=== PATIENT | male | born 1980 | race Caucasian/White ===

== ENCOUNTER 2016-11-26 09:30 | Emergency (ER) | payer SELFPAY ==
[~2016-11-26 09:30] MED LIST: ACHD5005 PO; ALPR1T PO; AZIT-21 PO; CIPR500T78 PO; CLN150C PO; CPR500T PO; CYCL10TA9 PO; DIAZ10TA PO; DOXY100C2 PO; HYDR-1231 PO; HYDR-3720 PO; HYDR1CAP2 PO; IBUP800T26 PO; NAPR-243 PO; OXYC1CAP3 PO; PRD20T PO; SULF1TAB38 PO; TRM50T PO
--- OUTSIDE RECORDS SUMMARY | 2016-11-26 09:35 | XMS REPORT | Continuity of Care Document ---
Author Author [facility] Organization [facility] Address Unknown Phone Unavailable Allergies Active Description Code Type Severity Reaction Onset Reported/Identified Relationship to Patient Clinical Status Yes No Known Drug Allergies [id number] Drug Allergy Unknown N/ A 05/03/2012 Medications Problems Date Dx Coded Attending Type Code Diagnosis Diagnosed By 11/24/2009 Ot 922.1 11/24/2009 Ot 959.11 11/24/2009 Ot E000.8 11/24/2009 Ot E849.0 11/24/2009 Ot E881.0 12/14/2009 Ot 847.0 12/14/2009 Ot 959.09 12/14/2009 Ot E000.8 12/14/2009 Ot E016.9 12/14/2009 Ot E849.0 12/14/2009 Ot E925.9 12/16/2009 Ot 847.0 12/16/2009 Ot E000.8 12/16/2009 Ot E016.9 12/16/2009 Ot E849.0 12/16/2009 Ot E925.9 09/07/2010 Ot 850.0 09/07/2010 Ot 920 09/07/2010 Ot 959.01 09/07/2010 Ot E000.8 09/07/2010 Ot E849.6 09/07/2010 Ot E960.0 03/09/2011 Ot 723.1 04/14/2011 Ot 719.41 11/13/2011 Ot 305.1 11/13/2011 Ot 465.9 11/13/2011 Ot 786.2 05/03/2012 Ot 891.0 05/03/2012 Ot E000.8 05/03/2012 Ot E849.0 05/03/2012 Ot E919.3 05/03/2012 Ot V06.1 05/19/2012 Ot V58.32 05/03/2013 GENOVEVA SALVADOR, DANIELLE Mcclendon Ot 724.4 05/03/2013 GENOVEVA SALVADOR, DANIELLE Mcclendon Ot 724.5 10/06/2013 TAN FELICIANO MD Ot 370.24 10/06/2013 TAN FELICIANO MD Ot E926.2 02/06/2014 SKY DO, SUZY Ot 300.00 02/06/2014 SKY DO, SUZY Ot 305.1 02/06/2014 SKY DO, SUZY Ot 682.3 02/06/2014 SKY DO, SUZY Ot 682.4 02/06/2014 SKY DO, SUZY Ot V06.1 02/06/2014 SKY DO, SUZY Ot 300.00 02/06/2014 SKY DO, SUZY Ot 305.1 02/06/2014 SKY DO, SUZY Ot 682.3 02/06/2014 SKY DO, SUZY Ot 682.4 02/06/2014 SKY DO, SUZY Ot V06.1 02/06/2014 SKY DO, SUZY Ot 300.00 02/06/2014 SKY DO, SUZY Ot 305.1 02/06/2014 SKY DO, SUZY Ot 682.3 02/06/2014 SKY DO, SUZY Ot 682.4 02/06/2014 SKY DO, SUZY Ot V06.1 02/07/2014 SKY DO, SUZY Ot 300.00 02/07/2014 SKY DO, SUZY Ot 305.1 02/07/2014 SKY DO, SUZY Ot 682.3 02/07/2014 SKY DO, SUZY Ot 682.4 02/07/2014 SKY DO, SUZY Ot V06.1 02/08/2014 SKY DO, SUZY Ot 300.00 02/08/2014 SKY DO, SUZY Ot 305.1 02/08/2014 SKY DO, SUYZ Ot 682.3 02/08/2014 SKY DO, SUZY Ot 682.4 02/08/2014 SKY DO, SUZY Ot 882.1 02/08/2014 SKY DO, SUZY Ot E000.0 02/08/2014 SKY DO, SUZY Ot E849.0 02/08/2014 SKY DO, SUZY Ot E917.9 02/08/2014 SKY DO, SUZY Ot V06.1 Procedures Results Encounters ACCT No. Visit Date/Time Discharge Status Pt. Type Provider Facility Loc./Unit Complaint [id number] 06/29/2014 05:27:00 2014 07:55:00 DIS Emergency DANIELLE TOMAS MD [facility] ER [id number] 02/05/2014 14:59:00 2013 11:30:00 DIS Inpatient SKY DOSUZY [facility] SURGICAL [id number] 10/06/2013 00:03:00 2013 00:33:00 DIS Emergency TAN FELICIANO MD [facility] ER [id number] 05/03/2013 07:29:00 2013 08:24:00 DIS Emergency DANIELLE TOMAS MD [facility] ER [id number] 02/20/2014 10:01:00 Document Registration [id number] 05/19/2012 09:03:00 Document Registration [id number] 05/03/2012 04:38:00 Document Registration [id number] 11/13/2011 11:33:00 Document Registration [id number] 04/14/2011 07:18:00 Document Registration [id number] 03/09/2011 10:05:00 Document Registration [id number] 09/06/2010 23:07:00 Document Registration [id number] 12/16/2009 10:12:00 Document Registration [id number] 12/14/2009 10:00:00 Document Registration [id number] 11/23/2009 22:24:00 Document Registration
== END 2016-11-26 09:45 | disposition left against medical advice (07) ==
LOC: EDUNIT# 09:30 → ER 09:32
DX: J02.9 Acute pharyngitis, unspecified (principal); K08.89 Other specified disorders of teeth and supporting structures; R05 Cough

== ENCOUNTER 2017-09-15 14:39 | Emergency (ER) | payer SELFPAY ==
[~2017-09-15] VITALS: Ht 162.6 cm; Wt 61.2 kg
[2017-09-15 15:17] LABS: BILIRUBIN,URINE NEGATIVE (NEGATIVE); CLARITY,URINE VERY CLOUDY; COLOR,URINE YELLOW; GLUCOSE, URINE (UA) NEGATIVE (NEGATIVE); KETONES,URINE NEGATIVE (NEGATIVE); LEUKOCYTE ESTERASE ,URINE 3+ (NEGATIVE); NITRITE,URINE NEGATIVE (NEGATIVE); PH,URINE 8 (5-9); PROTEIN,URINE NEGATIVE (NEGATIVE); UROBILINOGEN,URINE NORMAL (NORMAL)
[2017-09-15 15:30] LABS: AMORPHOUS SEDIMENT,UR LARGE AMOR PHOSPHATE /LPF; BACTERIA,URINE MODERATE /HPF; RBC,URINE 0-2 /HPF; SQUAMOUS EPITHELIAL CELL,UR RARE /HPF; WBC,URINE 50-100 /HPF
[2017-09-15] MEDS ORDERED: LIDOCAINE 1% INJ 20 ML 20 ML VIAL INJ ONE (15:45)
[2017-09-15] MEDS ORDERED: cefTRIAXone 1 GM (ROCEPHIN) VIAL IM ONE (15:45)
--- NOTE | 2017-09-15 15:49 | ED GU-Male ---
General Chief Complaint: -Male Stated Complaint: GROIN PAIN Nursing Triage Note: PT AMB TO ROOM 9 W/O DIFFICULTY. A&OX4. CO PENILE PAIN AND DISCAHRGE. STATES "FEELS LIKE BEING KICKED IN THE NUTS." Source: patient Exam Limitations: no limitations History of Present Illness Date Seen by Provider: Sep 15, 2017 Time Seen by Provider: 15:10 Initial Comments Patient is a 37-year-old male who presents to the emergency room with complaints of testicular pain and left-sided testicular swelling. He reports that the swelling started yesterday about 1300. He denies any discharge, painful urination, or injury. Timing/Duration: yesterday Severity/Quality: moderate Location: scrotal Radiation: none Activities at Onset: none Sexual [place] History: multiple partners Modifying Factors: Worsens With Movement, Worsens With Palpation Associated Symptoms: denies symptoms Allergies and Home Medications Allergies Coded Allergies: No Known Drug Allergies (Unverified , 05/03/12) Home Medications Alprazolam 1 Mg Tablet, 1 MG PO TID PRN for ANXIETY, (Reported) Ciprofloxacin HCl 500 Mg Tablet, 500 MG PO BID Prescribed by: DANIELLE MODI on 06/29/14728 Clindamycin Hcl 150 Mg Cap, 300 MG PO TID Prescribed by: RACHEL FONG on 02/08/141108 Doxycycline Hyclate 100 Mg Capsule, 1 EACH PO BID Prescribed by: DANIELLE MODI on 06/29/14728 Hydrocodone Bit/Acetaminophen 1 Tab Tablet, 1-2 TAB PO Q6H PRN for PAIN Prescribed by: DANIELLE MODI on 06/29/14728 Patient Home Medication List Home Medication List Reviewed: Yes Review of Systems Constitutional: see HPI; No chills, No fever EENTM: no symptoms reported Respiratory: see HPI; No cough, No short of breath, No wheezing Cardiovascular: see HPI; No chest pain, No edema, No syncope Gastrointestinal: see HPI; No abdominal pain, No nausea, No vomiting Genitourinary: see HPI, other (testicular pain, left testicular swelling) Musculoskeletal: see HPI; No back pain, No gout Skin: see HPI; No change in color, No change in hair/nails, No dryness Psychiatric/Neurological: See HPI; Denies Anxiety, Denies Depressed Endocrine: See HPI; Denies Excessive Sweating, Denies Flushing Hematologic/Lymphatic: See HPI; Denies Anemia, Denies Blood Clots Past Hnyqcgu-Piciap-Jerxnn Hx Past Med/Social Hx: Reviewed Nursing Past Med/Soc Hx Patient Social History Alcohol Use: Denies Use Recreational Drug Use: No Smoking Status: Current Everyday Smoker Type Used: Cigarettes 2nd Hand Smoke Exposure: Yes Recent Foreign Travel: No Contact w/Someone Who Travel: No Recent Infectious Disease Expo: No Physical Abuse: No Sexual Abuse: No Immunizations Up To Date Tetanus Booster (TDap): Less than 5yrs Seasonal Allergies Seasonal Allergies: No Past Medical History Surgeries: Yes (SAYS MULTIPLE BUT CANNOT REMEMBER, I&D of the left hand) Respiratory: No Cardiac: No Neurological: No Reproductive Disorders: No Sexually Transmitted Disease: No HIV/AIDS: No Gastrointestinal: No Musculoskeletal: No Endocrine: No Cancer: No Psychosocial: Yes Anxiety Nursing Suicide Risk Score: 0 Integumentary: Yes (abscess and cellulitis of left hand) Recent Skin Changes Blood Disorders: No Adverse Reaction/Blood Tranf: No Family Medical History Reviewed Nursing Family Hx Patient reports no known family medical history. No Pertinent Family Hx Physical Exam Vital Signs Vital Signs - First Documented 09/15/17 14:42 Temp 97.1 Pulse 104 Resp 16 B/P (MAP) 143/95 (111) Pulse Ox 99 O2 Delivery Room Air O2 Flow Rate 0 Capillary Refill : Less Than 3 Seconds Height, Weight, BMI Height: 5'4.00" Weight: 135lbs. 0.8oz. 61.740890yf; BMI Method:Stated General Appearance: WD/WN, no apparent distress HEENT: PERRL/EOMI, normal ENT inspection, TMs normal, pharynx normal Neck: non-tender, full range of motion, supple, normal inspection Cardiovascular: regular rate, rhythm, no edema, no gallop Respiratory: chest non-tender, lungs clear, normal breath sounds Gastrointestinal: normal bowel sounds, non tender, soft, no organomegaly, no pulsatile mass Male: normal genitalia, normal prostate, no hernia; No inguinal tenderness; testicular tenderness, other (the patient's left testicle is markedly swollen compared to the right. He is very tender on exam. His prostate was normal. The patient's cremasteric reflexes was present.) Back: normal inspection, no CVA tenderness, no vertebral tenderness Extremities: normal range of motion, non-tender, normal inspection, no pedal edema, no calf tenderness Neurologic/Psychiatric: alert, normal mood/affect, oriented x 3 Skin: normal color, warm/dry Lymphatic: no adenopathy Procedures/Interventions Suture Size: 4-0 Progress/Results/Core Measures Suspected Sepsis Recent Fever Within 48 Hours: No Infection Criteria Present: None New/Unexplained Altered Menta: No Sepsis Screen: No Definite Risk SIRS Temperature:97.1 Pulse: 104 Respiratory Rate: 16 Blood Pressure 143 /95 Mean: 111 Results/Orders Lab Results Laboratory Tests Test 09/15/17 15:10 Range/Units Urine Color YELLOW Urine Clarity VERY CLOUDY H Urine pH 8 5-9 Urine Specific [place] 1.010 L 1.016-1.022 Urine Protein NEGATIVE NEGATIVE Urine Glucose (UA) NEGATIVE NEGATIVE Urine Ketones NEGATIVE NEGATIVE Urine Nitrite NEGATIVE NEGATIVE Urine Bilirubin NEGATIVE NEGATIVE Urine Urobilinogen NORMAL NORMAL MG/DL Urine Leukocyte Esterase 3+ H NEGATIVE Urine RBC (Auto) 1+ H NEGATIVE Urine RBC 0-2 /HPF Urine WBC 50-100 H /HPF Urine Squamous Epithelial Cells RARE /HPF Urine Renal Epithelial Cells NONE /HPF Urine Crystals PRESENT H /LPF Urine Amorphous Sediment LARGE KRISTEN PHOSPHATE H /LPF Urine Bacteria MODERATE H /HPF Urine Casts NONE /LPF Urine Mucus NEGATIVE /LPF Urine Culture Indicated YES My Orders Orders - ACE HOPE Scrotum (Testicle) [id number] (09/15/17 15:00) Chlamydia Trachomatis Urine (09/15/17 15:00) Neis Sekou Dna Urine Test (09/15/17 15:00) Ua Culture If Indicated (09/15/17 15:00) Urine Culture (09/15/17 15:10) Ceftriaxone Injection (Rocephin Injectio (09/15/17 15:45) Lidocaine 1% Inj 20 Ml (Xylocaine 1% Inj (09/15/17 15:45) Ibuprofen Tablet (Motrin Tablet) (09/15/17 16:00) Medications Given in ED Current Medications Medications Dose Ordered Sig/Reese Route Start Time Stop Time Status Last Admin Dose Admin Ceftriaxone Sodium 1,000 mg ONCE ONCE IM 09/15/17 15:45 09/15/17 15:46 DC 09/15/17 16:10 1,000 MG Ibuprofen 800 mg ONCE ONCE PO 09/15/17 16:00 09/15/17 16:01 DC 09/15/17 16:11 800 MG Lidocaine HCl 2.1 ml ONCE ONCE INJ 09/15/17 15:45 09/15/17 15:46 DC 09/15/17 16:10 2.1 ML Vital Signs/I&O 09/15/17 14:42 Temp 97.1 Pulse 104 Resp 16 B/P (MAP) 143/95 (111) Pulse Ox 99 O2 Delivery Room Air O2 Flow Rate 0 Capillary Refill : Less Than 3 Seconds Blood Pressure Mean: 111 Progress Note : Time: 15:48 Progress Note Patient was informed of his urinary tract infection and epididymitis that was discovered on ultrasound. He agrees with follow-up as a primary care physician and taking the doxycycline that was prescribed in the emergency room. The patient was sent home with a prescription for doxycycline 100 mg twice a day for 14 days. Departure Impression Primary Impression: Epididymitis Additional Impression: Hydrocele Qualified Codes: N43.3 - Hydrocele, unspecified Disposition: 01 HOME, SELF-CARE Condition: Stable/Unchanged Departure-Patient Inst. Decision time for Depature: 16:28 Referrals: KVNG OLVERA MD [facility] [place] Patient Instructions: Epididymitis (DC), Hydrocele, LOCAL PHYSICIAN LIST Add. Discharge Instructions: Take medication as directed. Follow-up with a doctor of your choice within 1 week for recheck. I also provided the urologist for follow-up. Call first thing Monday morning for an appointment time. Return back to the emergency room for any concerns as needed. All discharge instructions reviewed with patient and/or family. Voiced understanding. ACE HOPE Sep 15, 2017 15:49
[2017-09-15] MEDS ORDERED: IBUPROFEN TABLET 200 MG TAB PO ONE (16:00)
--- NOTE | 2017-09-15 16:17 | Diagnostic Imaging Report ---
EXAM: TESTICULAR/SCROTUM ULTRASOUND DATE: September 15, 2017. COMPARISON: June 29, 2014. INDICATION: 37-year-old male, left testicle pain and swelling. PROCEDURE: Two-dimensional grayscale , spectral Doppler and color Doppler ultrasound examination of the testes is performed. FINDINGS: Right testicle. The right testicle has normal contour and is without mass. There is normal blood flow to the right testicle. The right testicle measures 4.5 cm x 2.1 cm x 2.8 cm. Left testicle: The left testicle has normal contour and is without mass. There is normal blood flow to the left testicle. The left testicle measures 3.8 cm x 2.3 cm x 2.8 cm. The left epididymis is hypervascular and enlarged. There is a small left hydrocele. The right epididymis is normal in appearance. IMPRESSION: 1. Findings compatible with left-sided epididymitis. 2. Small left hydrocele. 3. Normal appearance of the testicles bilaterally. Dictated by: Dictated on workstation # [id number]
[2017-09-15 16:40] VITALS: BP 143/95
== END 2017-09-15 16:40 | disposition home or self-care (01) ==
LOC: EDUNIT# 14:39 → ER 14:40
DX: N45.1 Epididymitis (principal); N43.3 Hydrocele, unspecified; F41.9 Anxiety disorder, unspecified; F17.210 Nicotine dependence, cigarettes, uncomplicated
CPT/HCPCS: 36415; 76870; 81000; 87088; 87491; 87591; 96372

== ENCOUNTER 2018-07-23 21:22 | Emergency (ER) | payer SELFPAY ==
[~2018-07-23] VITALS: Ht 162.6 cm; Wt 63.5 kg
[2018-07-23] MEDS ORDERED: KETOROLAC 30 MG/ML VIAL IVP ONE (22:00)
--- NOTE | 2018-07-23 22:03 | ED Abdominal Pain ---
General Chief Complaint: Abdominal/GI Problems Stated Complaint: ABD PAIN Nursing Triage Note: abdominal pain, diarrhea Sepsis Screen: No Definite Risk Source of Information: Patient Exam Limitations: No Limitations History of Present Illness Date Seen by Provider: July 23, 2018 Time Seen by Provider: 22:01 Initial Comments 1 week of right lower quadrant abdominal pain, intermittent loose stools, no other symptoms Timing/Duration: 1 Week Severity/Quality: Cramping Location: RLQ Radiation: No Radiation Activities at Onset: None Allergies and Home Medications Allergies Coded Allergies: No Known Drug Allergies (Unverified , 05/03/12) Patient Home Medication List Home Medication List Reviewed: Yes Review of Systems Review of Systems Constitutional: see HPI; No chills EENTM: No Symptoms Reported Respiratory: No Symptoms Reported Cardiovascular: No Symptoms Reported Gastrointestinal: See HPI, Abdominal Pain; Denies Constipated; Diarrhea; Denies Nausea Genitourinary: No Symptoms Reported Musculoskeletal: no symptoms reported Skin: no symptoms reported Psychiatric/Neurological: No Symptoms Reported Past Xudlnlu-Tzfhxw-Hqknom Hx Patient Social History Alcohol Use: Denies Use Recreational Drug Use: No Smoking Status: Current Everyday Smoker Type Used: Cigarettes 2nd Hand Smoke Exposure: Yes Recent Foreign Travel: No Contact w/Someone Who Travel: No Recent Infectious Disease Expo: No Recent Hopitalizations: No Immunizations Up To Date Tetanus Booster (TDap): Less than 5yrs Seasonal Allergies Seasonal Allergies: No Past Medical History Surgeries: No Respiratory: No Cardiac: No Neurological: No Reproductive Disorders: No Sexually Transmitted Disease: No HIV/AIDS: No Genitourinary: No Gastrointestinal: No Musculoskeletal: No Endocrine: No HEENT: No Cancer: No Psychosocial: Yes Anxiety Integumentary: No Recent Skin Changes Blood Disorders: No Adverse Reaction/Blood Tranf: No Family Medical History Patient reports no known family medical history. No Pertinent Family Hx Physical Exam Vital Signs Vital Signs - First Documented 07/23/18 21:43 Temp 97.9 Pulse 98 Resp 16 B/P (MAP) 140/85 (103) Pulse Ox 100 O2 Delivery Room Air Capillary Refill : Less Than 3 Seconds Height/Weight/BMI Height: 5'4.00" Weight: 140lbs. 0oz. 63.194206fe; 21.63 BMI Method:Stated General Appearance: WD/WN, no apparent distress Respiratory: no respiratory distress, no accessory muscle use Gastrointestinal: normal bowel sounds, non tender, soft; No tenderness Extremities: normal range of motion, non-tender Neurologic/Psychiatric: alert, normal mood/affect, oriented x 3 Skin: normal color, warm/dry Procedures/Interventions Suture Size: 4-0 Progress/Results/Core Measures Results/Orders Lab Results Laboratory Tests Test 07/23/18 22:05 07/23/18 22:15 Range/Units Urine Color YELLOW Urine Clarity CLEAR Urine pH 7 5-9 Urine Specific [place] 1.010 L 1.016-1.022 Urine Protein NEGATIVE NEGATIVE Urine Glucose (UA) NEGATIVE NEGATIVE Urine Ketones NEGATIVE NEGATIVE Urine Nitrite NEGATIVE NEGATIVE Urine Bilirubin NEGATIVE NEGATIVE Urine Urobilinogen NORMAL NORMAL MG/DL Urine Leukocyte Esterase NEGATIVE NEGATIVE Urine RBC (Auto) NEGATIVE NEGATIVE Urine RBC NONE /HPF Urine WBC NONE /HPF Urine Squamous Epithelial Cells RARE /HPF Urine Crystals NONE /LPF Urine Bacteria NEGATIVE /HPF Urine Casts NONE /LPF Urine Mucus NEGATIVE /LPF Urine Culture Indicated NO Urine Opiates Screen NEGATIVE NEGATIVE Urine Oxycodone Screen NEGATIVE NEGATIVE Urine Methadone Screen NEGATIVE NEGATIVE Urine Propoxyphene Screen NEGATIVE NEGATIVE Urine Barbiturates Screen NEGATIVE NEGATIVE Ur Tricyclic Antidepressants Screen NEGATIVE NEGATIVE Urine Phencyclidine Screen NEGATIVE NEGATIVE Urine Amphetamines Screen NEGATIVE NEGATIVE Urine Methamphetamines Screen POSITIVE H NEGATIVE Urine Benzodiazepines Screen NEGATIVE NEGATIVE Urine Cocaine Screen NEGATIVE NEGATIVE Urine Cannabinoids Screen POSITIVE H NEGATIVE White Blood Count 7.0 4.3-11.0 10^3/uL Red Blood Count 5.16 4.35-5.85 10^6/uL Hemoglobin 15.8 13.3-17.7 G/DL Hematocrit 46 40-54 % Mean Corpuscular Volume 89 80-99 FL Mean Corpuscular Hemoglobin 31 25-34 PG Mean Corpuscular Hemoglobin Concent 35 32-36 G/DL Red Cell Distribution Width 13.7 10.0-14.5 % Platelet Count 275 130-400 10^3/uL Mean Platelet Volume 10.0 7.4-10.4 FL Neutrophils (%) (Auto) 59 42-75 % Lymphocytes (%) (Auto) 25 12-44 % Monocytes (%) (Auto) 9 0-12 % Eosinophils (%) (Auto) 6 0-10 % Basophils (%) (Auto) 1 0-10 % Neutrophils # (Auto) 4.1 1.8-7.8 X 10^3 Lymphocytes # (Auto) 1.7 1.0-4.0 X 10^3 Monocytes # (Auto) 0.7 0.0-1.0 X 10^3 Eosinophils # (Auto) 0.4 H 0.0-0.3 10^3/uL Basophils # (Auto) 0.1 0.0-0.1 10^3/uL Sodium Level 142 135-145 MMOL/L Potassium Level 3.5 L 3.6-5.0 MMOL/L Chloride Level 106 98-107 MMOL/L Carbon Dioxide Level 23 21-32 MMOL/L Anion Gap 13 5-14 MMOL/L Blood Urea Nitrogen 9 7-18 MG/DL Creatinine 0.88 0.60-1.30 MG/DL Estimat Glomerular Filtration Rate > 60 BUN/Creatinine Ratio 10 Glucose Level 102 70-105 MG/DL Calcium Level 9.2 8.5-10.1 MG/DL Corrected Calcium 9.2 8.5-10.1 MG/DL Total Bilirubin 0.3 0.1-1.0 MG/DL Aspartate Amino Transf (AST/SGOT) 36 H 5-34 U/L Alanine Aminotransferase (ALT/SGPT) 48 0-55 U/L Alkaline Phosphatase 50 40-136 U/L Total Protein 6.7 6.4-8.2 GM/DL Albumin 4.0 3.2-4.5 GM/DL Lipase 42 8-78 U/L My Orders Orders - JOJO CASTELLANOS OPERATIONAL RISK MANAGER Cbc With Automated Diff (07/23/18 21:57) Comprehensive Metabolic Panel (07/23/18 21:57) Lipase (07/23/18 21:57) Ua Culture If Indicated (07/23/18 21:57) Ed Iv/Invasive Line Start (07/23/18 21:57) Ketorolac Injection (Toradol Injection) (07/23/18 22:00) Drug Screen Stat (Urine) (07/23/18 22:03) Ct Abd/Pelvis Wo(Kidney Stone) (07/23/18 22:15) Iohexol Injection (Omnipaque 350 Mg/Ml 1 (07/23/18 22:30) Received Contrast (Hold Metformin- Contr (07/23/18 22:30) Ns (Ivpb) (Sodium Chloride 0.9% Ivpb Bag (07/23/18 22:30) Vital Signs/I&O 07/23/18 21:43 Temp 97.9 Pulse 98 Resp 16 B/P (MAP) 140/85 (103) Pulse Ox 100 O2 Delivery Room Air Blood Pressure Mean: 103 Departure Impression Primary Impression: Nonspecific abdominal pain Disposition: 01 HOME, SELF-CARE Condition: Stable Departure-Patient Inst. Decision time for Depature: 22:02 Referrals: NO,LOCAL PHYSICIAN (PCP/Family) Primary Care Physician Patient Instructions: Acute Abdomen (Belly Pain), Adult (DC) JOJO CASTELLANOS APRN July 23, 2018 22:03
[2018-07-23 22:16] LABS: BILIRUBIN,URINE NEGATIVE (NEGATIVE); CLARITY,URINE CLEAR; COLOR,URINE YELLOW; GLUCOSE, URINE (UA) NEGATIVE (NEGATIVE); KETONES,URINE NEGATIVE (NEGATIVE); LEUKOCYTE ESTERASE ,URINE NEGATIVE (NEGATIVE); NITRITE,URINE NEGATIVE (NEGATIVE); PH,URINE 7 (5-9); PROTEIN,URINE NEGATIVE (NEGATIVE); UROBILINOGEN,URINE NORMAL (NORMAL)
[2018-07-23 22:21] LABS: BACTERIA,URINE NEGATIVE /HPF; SQUAMOUS EPITHELIAL CELL,UR RARE /HPF
[2018-07-23 22:21] LABS: BASOPHILS # (AUTO) 0.1 10^3/uL (0.0-0.1); BASOPHILS % (AUTO) 1 % (0-10); EOSINOPHILS # (AUTO) 0.4 10^3/uL (0.0-0.3); EOSINOPHILS % (AUTO) 6 % (0-10); HEMATOCRIT 46 % (40-54); HEMOGLOBIN 15.8 G/DL (13.3-17.7); LYMPHOCYTES # (AUTO) 1.7 X 10^3 (1.0-4.0); LYMPHOCYTES % (AUTO) 25 % (12-44); MEAN CORPUSCULAR HEMOGLOBIN 31 PG (25-34); MEAN CORPUSCULAR HGB CONC 35 G/DL (32-36); MEAN CORPUSCULAR VOLUME 89 FL (80-99); MONOCYTES # (AUTO) 0.7 X 10^3 (0.0-1.0); MONOCYTES % (AUTO) 9 % (0-12); NEUTROPHILS # (AUTO) 4.1 X 10^3 (1.8-7.8); NEUTROPHILS % (AUTO) 59 % (42-75); PLATELET COUNT 275 10^3/uL (130-400); RED CELL DISTRIBUTION WIDTH 13.7 % (10.0-14.5)
[2018-07-23 22:26] LABS: AMPHETAMINE SCREEN, URINE NEGATIVE (NEGATIVE); BARBITURATE SCREEN URINE NEGATIVE (NEGATIVE); BENZODIAZEPINES SCREEN URINE NEGATIVE (NEGATIVE); CANNABINOID SCREEN, URINE POSITIVE (NEGATIVE); COCAINE SCREEN URINE NEGATIVE (NEGATIVE); METHADONE STAT NEGATIVE (NEGATIVE); METHAMPHETAMINE SCREEN URINE S POSITIVE (NEGATIVE); OPIATE SCREEN URINE NEGATIVE (NEGATIVE); OXYCODONE STAT NEGATIVE (NEGATIVE); PROPOXYPHENE STAT NEGATIVE (NEGATIVE); TRICYCLIC ANTIDEPRESSANTS SCRE NEGATIVE (NEGATIVE)
[2018-07-23] MEDS ORDERED: IOHEXOL 350 MG/ML 100 ML (OMNIPAQUE 350) VIAL IV ONE (22:30)
[2018-07-23] MEDS ORDERED: HOLD METFORMIN - RECEIVED CONTRAST 20 ML VIAL IV SCH (22:30)
[2018-07-23] MEDS ORDERED: NS 100 ML (IVPB) BAG IV ONE (22:30)
[2018-07-23 22:44] LABS: ALANINE AMINOTRANSFERASE 48 U/L (0-55); ALKALINE PHOSPHATASE 50 U/L (40-136); BILIRUBIN,TOTAL 0.3 MG/DL (0.1-1.0); BUN/CREATININE RATIO 10; CALCIUM 9.2 MG/DL (8.5-10.1); CARBON DIOXIDE 23 MMOL/L (21-32); CHLORIDE 106 MMOL/L (98-107); CREATININE SERUM 0.88 MG/DL (0.60-1.30); GFR ESTIMATED > 60; GLUCOSE 102 MG/DL (70-105); LIPASE 42 U/L (8-78); POTASSIUM 3.5 MMOL/L (3.6-5.0); SODIUM 142 MMOL/L (135-145); TOTAL PROTEIN 6.7 GM/DL (6.4-8.2)
[2018-07-23] MEDS ORDERED: RX-HYOSCYAMINE 0.125 MG SL (LEVSIN) PPK#6 SL STA (22:49)
[2018-07-23 23:10] VITALS: BP 132/68
--- NOTE | 2018-07-24 06:31 | Diagnostic Imaging Report ---
PROCEDURE: CT urinary tract, rule out kidney stone. TECHNIQUE: Multiple contiguous axial images were obtained through the abdomen and pelvis without the use of intravenous contrast. Auto Exposure Controls were utilized during the CT exam to meet ALARA standards for radiation dose reduction. INDICATION: Abdominal pain, nausea, vomiting, and diarrhea. COMPARISON: CT abdomen performed on 11/24/2009. FINDINGS: Absence of intravenous contrast decreases sensitivity for detection of lymphadenopathy, focal lesions and vascular pathology. The lung bases are clear and visualized heart is normal in size. The liver, spleen, pancreas, and adrenal glands are unremarkable. Gallbladder is contracted and not well evaluated. No radiopaque gallstones or biliary ductal dilatation is demonstrated. The kidneys are symmetric in size, without evidence of renal calculus or hydronephrosis on either side. The visualized ureters are normal. Stomach and duodenum are normal. Small bowel and colon are normal in course and caliber, without evidence of wall thickening or obstruction. The appendix is normal. No pneumoperitoneum, abdominal free fluid, or loculated collection. The aorta is nonaneurysmal. No lymphadenopathy is demonstrated. The bladder is normal, within limits of underdistention. The prostate gland is not enlarged. No pelvic free fluid is demonstrated. The abdominal wall is unremarkable. No acute osseous abnormality is demonstrated. IMPRESSION: No acute abdominal or pelvic pathology. Findings are in agreement with initial teleradiology report. Dictated by: Dictated on workstation # [id number]
== END 2018-07-23 23:10 | disposition home or self-care (01) ==
LOC: EDUNIT# 21:22 → ER 21:23
DX: R10.31 Right lower quadrant pain (principal); F41.9 Anxiety disorder, unspecified; F17.210 Nicotine dependence, cigarettes, uncomplicated
CPT/HCPCS: 36415; 74176; 80053; 80306; 81000; 82962; 83690; 85025

== ENCOUNTER 2019-10-25 22:22 | Emergency (ER) | payer SELFPAY ==
[~2019-10-25] VITALS: Ht 162 cm; Wt 59.0 kg
--- NOTE | 2019-10-25 22:30 | NUR ---
THIS RN IN W/ DR GIBSON TO ASSESS PT'S TESTICLE.
--- NOTE | 2019-10-25 22:42 | NUR ---
REPORT CALLED TO MARILY CALDERÓN AT [facility]
--- NOTE | 2019-10-25 22:46 | ED GU-Male ---
General Chief Complaint: Male Reproductive Stated Complaint: TESTICLE PAIN, L LEG PAIN Source: patient History of Present Illness Date Seen by Provider: Oct 25, 2019 Time Seen by Provider: 22:30 Initial Comments PT ARRIVES VIA POV FROM HOME C/O SUDDEN ONSET OF SEVERE LEFT TESTICULAR PAIN AND SWELLING--BEGAN AN HOUR AGO NO TRAUMA STATES HE HAD BEEN WORKING ON HIS VEHICLE, BUT NO LIFTING, ETC. NO HISTORY OF SIMILAR NO PROBLEMS URINATING PRIOR TO THIS , HAS NOT ATTEMPTED TO VOID SINCE PAIN BEGAN NO NAUSEA/VOMITING/DIARRHEA NO FEVER PAIN RADIATES TO LEFT MEDIAL THIGH Allergies and Home Medications Allergies Coded Allergies: No Known Drug Allergies (Unverified , 05/03/12) Patient Home Medication List Home Medication List Reviewed: Yes Review of Systems Review of Systems Constitutional: no symptoms reported Genitourinary: see HPI Past Uhpedyg-Xjvhlr-Sjrymj Hx Patient Social History Smoking Status: Current Everyday Smoker Type Used: Cigarettes 2nd Hand Smoke Exposure: Yes Recent Foreign Travel: No Contact w/Someone Who Travel: No Recent Hopitalizations: No Immunizations Up To Date Tetanus Booster (TDap): Less than 5yrs Seasonal Allergies Seasonal Allergies: No Past Medical History Surgeries: No Respiratory: No Cardiac: No Neurological: No Reproductive Disorders: No Genitourinary: No Gastrointestinal: No Musculoskeletal: No Endocrine: No HEENT: No Cancer: No Psychosocial: Yes Anxiety Integumentary: No Blood Disorders: No Adverse Reaction/Blood Tranf: No Family Medical History Patient reports no known family medical history. No Pertinent Family Hx Physical Exam Vital Signs Vital Signs - First Documented 10/25/19 22:26 Temp 36.4 Pulse 73 Resp 20 B/P (MAP) 132/86 (101) Pulse Ox 98 O2 Delivery Room Air Capillary Refill : Height, Weight, BMI Height: 5'4.00" Weight: 140lbs. 0oz. 63.809422bk; 21.63 BMI Method:Stated General Appearance: thin, other (IN POSITION, HOLDING GENITAL AREA) Cardiovascular: regular rate, rhythm, no murmur Respiratory: normal breath sounds Gastrointestinal: non tender, soft Male: other (LEFT TESTICLE MARKEDLY TENDER, LEFT TESTICLE SWOLLEN-AT LEAST TWICE SIZE OF RIGHT, AND IS VERY FIRM. TENDERNESS INTO INGUINAL AREA, WITH A FEW VERY TINY LEFT INGUINAL NODES. HAS 1 CM SHALLOW UCLERATION TO DORSAL ASPECT OF SHAFT OF PENIS-NO DRAINAGE. PT STATES HAS BEEN PRESENT FOR A COUPLE OF DAYS. ) Procedures/Interventions Suture Size: 4-0 Progress/Results/Core Measures Suspected Sepsis SIRS Temperature: Pulse: Respiratory Rate: Blood Pressure / Mean: Results/Orders Vital Signs/I&O 10/25/19 10/25/19 22:26 22:54 Temp 36.4 Pulse 73 73 Resp 20 20 B/P (MAP) 132/86 (101) 132/86 Pulse Ox 98 98 O2 Delivery Room Air Room Air Capillary Refill : Progress Note : Progress Note NO ULTRASOUND SERVICES HERE ALL WEEKEND. Departure Communication (Admissions) [id number]--CALLED [facility]--SPOKE WITH DR. TAVARES, ER PHYSICIAN, ACCEPTS PT FOR TRANSFER. IS AGREEABLE TO PT GOING BY POV. Impression Primary Impression: ACUTE LEFT TESTICULAR PAIN AND SWELLING Disposition: XF SHT-TRM HOSP Condition: Stable Transfer Transfer Reason: Exceeds level of care Transfer Facility: [facility] Method of Transfer: Private Vehicle Departure-Patient Inst. Referrals: NO,LOCAL PHYSICIAN (PCP/Family) Primary Care Physician APOORVA GIBSON DO Oct 25, 2019 22:46
[2019-10-25 22:54] VITALS: BP 132/86
--- NOTE | 2019-10-25 22:54 | NUR ---
PT TO [facility] AT THIS TIME PER POV
== END 2019-10-25 22:54 | disposition short-term general hospital (02) ==
LOC: EDUNIT# 22:22 → ER 22:23
DX: N50.812 Left testicular pain (principal); N50.89 Other specified disorders of the male genital organs; F17.210 Nicotine dependence, cigarettes, uncomplicated

== ENCOUNTER 2021-12-20 21:47 | Emergency (ER) | payer SELFPAY ==
[2021-12-20] MEDS ORDERED: METH-732 PO (22:28)
[2021-12-20] MEDS ORDERED: NAPR-1071 PO (22:28)
--- NOTE | 2021-12-20 22:28 | ED Back Pain ---
General Chief Complaint: Back Problems Stated Complaint: BACK PAIN Nursing Triage Note: PT AMBULATORY INTO ER WITH COMPLAINT OF MID-LOWER BACK PAIN SINCE 1000 THIS MORNING. PT STATES THAT HE WAS MOVING A SMALL BOX AND WHEN HE STOOD UP BACK POPPED AND IT FELT LIKE HE WAS BEING TAZED. PT STATES THAT PAIN HAS WORSENED THROUGHOUT DAY. PAIN IS DESCRIBED SHARP AND GOES FROM MID BACK TO FEET. PAIN IS AT A 8/10. Source of Information: Patient Exam Limitations: No Limitations History of Present Illness Date Seen by Provider: Dec 20, 2021 Time Seen by Provider: 22:24 Initial Comments To ER by private vehicle from home with reports of severe midline low back pain that radiates down both legs. No loss of bowel or bladder control no numbness of his genitals. No fevers or chills no trauma. 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 Location: Lumbar Spine Timing/Duration: 4-6 Hours Severity: Moderate Pain/Injury Location: Back Associated Symptoms: lower back pain Allergies and Home Medications Allergies Coded Allergies: No Known Drug Allergies (Unverified , 05/03/12) Patient Home Medication List Home Medication List Reviewed: Yes Review of Systems Constitutional: see HPI EENTM: see HPI Respiratory: no symptoms reported Cardiovascular: no symptoms reported Genitourinary: no symptoms reported Musculoskeletal: see HPI, back pain Skin: no symptoms reported Psychiatric/Neurological: No Symptoms Reported Past Uyylsxu-[id number]-Oxsmnp Hx Patient Social History Tobacco Use?: Yes Tobacco type used: Cigarettes Smoking Status: Current Everyday Smoker Use of E-Cig and/or Vaping dev: No Substance use?: No Alcohol Use?: No Pt feels they are or have been: No Immunizations Up To Date Tetanus Booster (TDap): Less than 5yrs Influenza Vaccine Up-to-Date: No; Not Current Seasonal Allergies Seasonal Allergies: No Past Medical History Surgeries: No Respiratory: No Cardiac: No Neurological: No Reproductive Disorders: No Genitourinary: No Gastrointestinal: No Musculoskeletal: No Endocrine: No HEENT: No Cancer: No Psychosocial: Yes Anxiety Integumentary: No Blood Disorders: No Adverse Reaction/Blood Tranf: No Family Medical History Patient reports no known family medical history. No Pertinent Family Hx Physical Exam Vital Signs Vital Signs - First Documented 12/20/21 22:12 Temp 36.9 Pulse 103 Resp 18 B/P (MAP) 147/88 (107) Pulse Ox 99 O2 Delivery Room Air Capillary Refill : Less Than 3 Seconds Height, Weight, BMI Height: 5'4.00" Weight: 140lbs. 0oz. [id number]; 22.00 BMI Method:Stated General Appearance: No Apparent Distress, WD/WN Neck: Full Range of Motion, Normal Inspection Respiratory: No Accessory Muscle Use, No Respiratory Distress Gastrointestinal: Normal Bowel Sounds, Non Tender, Soft Extremity: Normal Capillary Refill, Normal Inspection Neurologic/Psychiatric: Alert, Oriented x3 Skin: Normal Color Procedures/Interventions Suture Size: 4-0 Progress/Results/Core Measures Results/Orders My Orders Orders - JOJO CASTELLANOS APRN Ibuprofen Tablet (Motrin Tablet) (12/20/21 22:30) Cyclobenzaprine Tablet (Flexeril Tablet) (12/20/21 22:30) Vital Signs/I&O 12/20/21 22:12 Temp 36.9 Pulse 103 Resp 18 B/P (MAP) 147/88 (107) Pulse Ox 99 O2 Delivery Room Air Blood Pressure Mean: 107 Departure Communication (Admissions) 2024-offered intramuscular injection of pain medications but he declined states he just wants to know what is wrong. Discussed with him that x-ray or CT would not help to identify pathology, MRI would be most helpful but that is not available nor is it necessary given his symptoms of only 12 hours duration and absence of any red flags. We will give him a work note to be off for a couple of days, anti-inflammatory muscle relaxers and return for any worsening. Impression Primary Impression: Lumbar radiculopathy Disposition: HOME, SELF-CARE Condition: Stable Departure-Patient Inst. Decision time for Depature: 22:26 Referrals: NO,LOCAL PHYSICIAN (PCP/Family) Primary Care Physician Patient Instructions: Radiculopathy Add. Discharge Instructions: 1. Call [facility] tomorrow to make an appointment to be seen for follow- up. In the meantime take the medication as directed. Return to ER for any loss of bowel or bladder control, numbness of genitals or any other concerns. All discharge instructions reviewed with patient and/or family. Voiced understanding. Scripts Naproxen (Naprosyn) 500 Mg Tablet 500 MG PO BID PRN for PAIN-MODERATE (5-7), #30 TAB 0 Refills Prov: JOJO CASTELLANOS APRN 12/20/21 Methocarbamol (Methocarbamol) 750 Mg Tablet 750 MG PO Q6-8HR for Back Pain, #14 TAB Prov: JOJO CASTELLANOS APRN 12/20/21 Work/School Note: Work Release Form Date Seen in the Emergency Department: Dec 20, 2021 Return to Work: Dec 23, 2021 JOJO CASTELLANOS APRN Dec 20, 2021 22:28
[2021-12-20] MEDS ORDERED: IBUPROFEN 800 MG (MOTRIN) TAB PO ONE (22:30)
[2021-12-20] MEDS ORDERED: CYCLOBENZAPRINE 10 MG (FLEXERIL) TAB PO SCH (22:30)
[2021-12-20 22:33] VITALS: BP 147/88
== END 2021-12-20 22:33 | disposition home or self-care (01) ==
LOC: EDUNIT# 21:47 → ER 21:49
DX: M54.16 Radiculopathy, lumbar region (principal); F17.210 Nicotine dependence, cigarettes, uncomplicated; X50.1XXA Overexertion from prolonged static or awkward postures, initial encounter; Y92.59 Other trade areas as the place of occurrence of the external cause; Y99.0 Civilian activity done for income or pay; Z28.310 Unvaccinated for COVID-19
CPT/HCPCS: 99283